=== PATIENT | female | born 1950 | race Caucasian/White ===

== ENCOUNTER → 2016-08-09 | Outpatient (CLI) | payer MEDICARE, OTHER ==
[~2016-08-09] MED LIST: FLUO20CA42 PO
--- NOTE | 2016-08-10 19:29 | Diagnostic Imaging Report ---
Digital screening mammography bilateral with CAD The current study was also evaluated with a Computer Aided Detection (CAD) system. Comparison is made to previous studies of 02/26/2015 and 12/19/2012. There is moderately dense breast parenchyma, bilaterally. Benign calcifications are again noted. There is no evidence of new dominant mass or suspicious clustered microcalcification. IMPRESSION: Benign findings. Continued physical examination and annual mammographic followup are recommended. ACR BI-RADS Category 2: Benign findings. Result letter will be mailed to the patient. Note: At least 10% of breast cancer is not imaged by mammography. Dictated by: Dictated on workstation # [id number]
== END ==
LOC: RAD 10:54
PROVIDERS: ATTEND Family Medicine
DX: Z12.31 Encounter for screening mammogram for malignant neoplasm of breast (principal)